=== PATIENT | female | born 1995 | race Caucasian/White ===

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

== ENCOUNTER 2019-03-06 19:23 | Outpatient (CLI) | payer MEDICAID ==
[~2019-03-06] VITALS: Ht 180.3 cm; Wt 88.8 kg
[~2019-03-06 19:23] MED LIST: IBUP-1773 PO; POLY17PO6 PO; PREN-142 PO
--- NOTE | 2019-03-06 19:29 | NUR ---
GARRY GALE presented to unit via ambulaotory from ED, accompanied by s/o , with c/o CONTRACTIONS. GARRY GALE weighed, gowned, voided, and to bed. EFHM and TOCO applied, VS taken. GARRY GALE oriented to bed controls, call light, TV, heat, and A/C controls. above tasks and further assessments completed per MERVAT العلي.
[2019-03-06 19:40] VITALS: BP 125/67
[2019-03-06 20:09] LABS: BILIRUBIN,URINE NEGATIVE (NEGATIVE); CLARITY,URINE CLEAR; COLOR,URINE YELLOW; GLUCOSE, URINE (UA) NEGATIVE (NEGATIVE); KETONES,URINE NEGATIVE (NEGATIVE); LEUKOCYTE ESTERASE ,URINE TRACE (NEGATIVE); NITRITE,URINE NEGATIVE (NEGATIVE); PROTEIN,URINE NEGATIVE (NEGATIVE)
[2019-03-06 20:22] LABS: BACTERIA,URINE MODERATE /HPF
[2019-03-06] MEDS ORDERED: CEPHALEXIN 250 MG (KEFLEX) CAP PO ONE ×2 (20:24→20:30)
[2019-03-06] MEDS ORDERED: CEPH-507 PO (20:27)
[2019-03-06 20:32] VITALS: BP 125/67
[2019-03-06 20:33] VITALS: BP 125/67
--- NOTE | 2019-03-06 20:42 | NUR ---
Discharge instructions read and reviewed with pt, verbalized understanding and ambulated off unit with friend.
--- NOTE | 2019-03-06 20:44 | NUR ---
Keflex 500mg bid x7 days called to [facility] in [place].
--- NOTE | 2019-03-07 07:58 | Physician Query-Final Dx ---
Clinic Account Progress/Dx Physician Query: Please give diagnosis (Ple) Please give # weeks gestation Date of Service Mar 06, 2019 at 19:23 BRITNEY MCCARTY Mar 07, 2019 07:58
== END 2019-03-06 20:40 | disposition home or self-care (01) ==
LOC: LDRP 19:23 → WSo 19:23
PROVIDERS: ATTEND Family Medicine
DX: O26.899 Other specified pregnancy related conditions, unspecified trimester (principal); Z3A.00 Weeks of gestation of pregnancy not specified
CPT/HCPCS: 81000; 87088; 99214

== ENCOUNTER 2019-05-12 20:45 | Inpatient (IN) | payer MEDICAID ==
[~2019-05-12] VITALS: Ht 180 cm; Wt 95.0 kg
[2019-05-12] VITALS (8 sets, daily range): BP systolic 125–167; BP diastolic 70–102
[~2019-05-12 20:45] MED LIST changes: +CEPH-507 PO
--- NOTE | 2019-05-12 20:45 | NUR ---
GARRY GALE presented to unit via W'C from ED, accompanied by S/O, with c/o WATER BROKE 39 04/26 gest . GARRY GALE weighed, gowned, voided, and to bed. EFHM and TOCO applied, VS taken. GARRY GALE oriented to bed controls, call light, TV, heat, and A/C controls.
--- NOTE | 2019-05-12 20:59 | NUR ---
notified of arrival and exam. Admission orders received.
[2019-05-12] MEDS ORDERED: D5 LR IV SOLUTION 1,000 ML IV ONE (21:00)
[2019-05-12] MEDS ORDERED: D5 LR IV SOLUTION 1,000 ML IV SCH (21:08)
[2019-05-12] MEDS ORDERED: MINERAL OIL CONCENTRATE 99.9% 15 ML UDC TOP PRN (21:15)
[2019-05-12] MEDS ORDERED: LACTATED RINGERS 1,000 ML IV ONE (21:29)
[2019-05-12 21:50] LABS: BASOPHILS % (AUTO) 0 % (0-10); EOSINOPHILS # (AUTO) 0.2 10^3/uL (0.0-0.3); EOSINOPHILS % (AUTO) 2 % (0-10); HEMATOCRIT 33 % (35-52); LYMPHOCYTES % (AUTO) 30 % (12-44); MEAN CORPUSCULAR HEMOGLOBIN 28 PG (25-34); MEAN CORPUSCULAR HGB CONC 33 G/DL (32-36); MEAN CORPUSCULAR VOLUME 85 FL (80-99); MONOCYTES # (AUTO) 1.1 X 10^3 (0.0-1.0); MONOCYTES % (AUTO) 12 % (0-12); NEUTROPHILS # (AUTO) 5.4 X 10^3 (1.8-7.8); NEUTROPHILS % (AUTO) 56 % (42-75); PLATELET COUNT 248 10^3/uL (130-400); RED CELL DISTRIBUTION WIDTH 14.2 % (10.0-14.5); WHITE BLOOD COUNT 9.7 10^3/uL (4.3-11.0)
[2019-05-12] MEDS ORDERED: LIDOCAINE/EPI 2% 1:200,00 (XYLOCAINE) 10 ML VIAL ONE (21:50)
[2019-05-12] MEDS ORDERED: fentaNYL 2 mcg/ml BUPIVA 0.125 0 ML ONE (21:51)
[2019-05-12] MEDS ORDERED: OXYTOCIN PRE-MIX DRIP 500 ML IV ONE ×2 (22:26→23:03)
[2019-05-12] MEDS: OXYTOCIN PRE-MIX DRIP 500 ML IV SCH ×2 (22:30→23:42)
--- NOTE | 2019-05-12 23:07 | History & Physical-OB ---
OB - Chief Complaint & HPI Date/Time Date of Admission: Date of Admission: May 12, 2019 at 21:06 Date seen by a Provider: May 12, 2019 Time Seen by a Provider: 22:28 Chief Complaint/History OB-Reason for Admission/Chief: Rupture of Membranes Hx : 2 Hx Para: 1 Expected Date of Delivery: May 16, 2019 Gestational Age in Weeks: 39 Gestational Age in Days: 3 Other reason for admission: SROM at home 2029 with onset of contractions. Green fluid. History of Labs O+, Ab neg, Rub Non Imm, HepB/RPR/HIV NR, GC/chyl neg Normal 1 hr GTT GBS neg Allergies and Home Medications Allergies Coded Allergies: No Known Drug Allergies (Unverified , 01/06/17) Home Medications Cephalexin 500 Mg Capsule, 500 MG PO BID Prescribed by: CAMILLE EDWARDS on 03/06/192026 Vit No.124/Iron/FA 1 Each Tablet, 1 EACH PO DAILY, (Reported) Patient Home Medication List Home Medication List Reviewed: Yes OB - History Hx of Present Care: Yes Ultrasounds: Normal mid trimester US Obstetrical Complications: None Medical Complications: None Information Induced Hypertension: No Maternal Gestational Diabetes: No Hemorrhage: No Obstetrical History Hx : 2 Hx Para: 1 Hx # Term Pregnancies: 1 Hx # Pregnancies: 0 Number of Living Children: 1 Hx Termination: No Hx Complication: No Hx Induced Hypertens: No Hx Maternal Gestational Diabet: No Hx Hemorrhage: No Delivery History Hx Dystocia: No Hx Forceps Assisted Delivery: No Hx Vacuum Extraction Assisted: No Hx Placenta Abnormality: No Hx Distress: No Hx Large For Gestational Age I: No Hx Small for Gestational Age I: No Hx Section: No Hx Vaginal Delivery Post C-Sec: No Hx Blood Disorders: No Adverse Rxn to Tranfusion: No Patient Past Medical History PMHx: Denies PSurgHx: Denies Social History/Family History HIV/AIDS: No Recent Infectious Disease Expo: No Sexually Transmitted Disease: No Alcohol Use: Denies Use Recreational Drug Use: No 2nd Hand Smoke Exposure: No Immunizations Hepatitis A: No Hepatitis B: No Tetanus Booster (TDap): Less than 5yrs (03/12/2019) Date of Influenza Vaccine: Jan 20, 2019 Rubella: not immune RPR/VDRL: Negative GBS Status: Negative HBsAG: Negative OB - Admission Exam Physical Exam Vitals: Vital Signs 05/12/19 21:12 Temp 36.5 Pulse 61 Resp 18 Pulse Ox 100 O2 Delivery Room Air HEENT: NCAT Lungs: Clear Abdomen: Gravid Cervical Dilatation: 10cm Effacement: 100% Station: +1 Membranes: Ruptured Amniotic Fluid: Thin Meconium Heart Rate: 130's Decelerations: Early Decelerations Contractions on Admission: < 5 Minutes Apart Intensity: Firm Labs Laboratory Tests Test 05/12/19 21:40 Range/Units White Blood Count 9.7 4.3-11.0 10^3/uL Red Blood Count 3.94 L 4.35-5.85 10^6/uL Hemoglobin 11.0 L 11.5-16.0 G/DL Hematocrit 33 L 35-52 % Mean Corpuscular Volume 85 80-99 FL Mean Corpuscular Hemoglobin 28 25-34 PG Mean Corpuscular Hemoglobin Concent 33 32-36 G/DL Red Cell Distribution Width 14.2 10.0-14.5 % Platelet Count 248 130-400 10^3/uL Mean Platelet Volume 12.0 H 7.4-10.4 FL Neutrophils (%) (Auto) 56 42-75 % Lymphocytes (%) (Auto) 30 12-44 % Monocytes (%) (Auto) 12 0-12 % Eosinophils (%) (Auto) 2 0-10 % Basophils (%) (Auto) 0 0-10 % Neutrophils # (Auto) 5.4 1.8-7.8 X 10^3 Lymphocytes # (Auto) 3.0 1.0-4.0 X 10^3 Monocytes # (Auto) 1.1 H 0.0-1.0 X 10^3 Eosinophils # (Auto) 0.2 0.0-0.3 10^3/uL Basophils # (Auto) 0.0 0.0-0.1 10^3/uL OB - Assessment/Plan/Diagnosis Assessment Assessment: active labor Admission Dx Term 39 week gestation Active Labor SROM Admission Status: Inpatient Order (span 2 midnights) Reason for Inpatient Admission: labor Plan Plan: Expectant Management Other Plan 23 yo @ 39.3 wga here after SROM at home with onset of labor Plan - Expectant Management - GBS Neg - Rub Non Imm Copy Copies To 1: JESSICA GLASS MD, HOLLY R MD May 12, 2019 23:06
[2019-05-12] MEDS ORDERED: WITCH HAZEL(TUCKS) 40 EA JAR TOP PRN (23:15)
[2019-05-12] MEDS ORDERED: BENZOCAINE/MENTHOL (DERMOPLAST) 60 ML CAN TP PRN (23:15)
[2019-05-12] MEDS ORDERED: MEASLES,MUMPS,RUBELLA 1 EA INJ SQ ONE (23:15)
--- NOTE | 2019-05-12 23:17 | OB Labor & Delivery Record ---
Vag Delivery Note Vag Delivery Note Date of Delivery: 05/12/19 Preoperative Diagnosis: Ariella Jacobsen is a (23 /Para 2 / 1, Gestational Age (wks)39.3with SROM at home Postoperative Diagnosis: Same Surgeon: JESSICA GLASS Posting Machine Operator: None Anesthesia: None Delivery Type: @ 2228 Findings: Viable female , apgars 8/9, weight 8#12, 3970 grams Lacerations: 2nd degree laceration Intact placenta with 3 vessel cord. No nuchal cord, body cord or shoulder dystocia Estimated Blood Loss: 125 ml Complications: None Condition: Stable Description of Procedure: The patient is a 23 year old female who presented with SROM at home. She was admitted and informed consent was obtained. Her labor course was remarkable for meconium. She progressed to complete dilatation and began to push. She was then set up for delivery. The infant's head was delivered atraumatically in the AROLDO position. The shoulders and remainder of the 's body were then delivered without difficulty. Upon delivery, the head was held below the level of the perineum and the mouth and nares were bulb suctioned. The cord was doubly clamped and cut by FOB and the infant was handed off to the pediatric staff. An intact placenta with 3-vessel cord delivered via Loy and there was found to be minimal bleeding.~ Vigorous fundal massage was performed and the fundus was found to be firm. IV oxytocin was given. Examination of the vagina and perineum revealed a 2nd degree laceration repaired in the usual fashion with 3-0 Reped suture. Following the repair, sponge, instrument and needle counts were correct. Mom and baby were both in stable condition in the labor suite. Vitals - Labs Vital Signs - I&O Vital Signs Date Time Temp Pulse Resp B/P (MAP) Pulse Ox O2 Delivery O2 Flow Rate FiO2 05/12/19 21:12 36.5 61 18 100 Room Air Labs Laboratory Tests 05/12/19 21:40: White Blood Count 9.7, Red Blood Count 3.94L, Hemoglobin 11.0L, Hematocrit 33L, Mean Corpuscular Volume 85, Mean Corpuscular Hemoglobin 28, Mean Corpuscular Hemoglobin Concent 33, Red Cell Distribution Width 14.2, Platelet Count 248, Mean Platelet Volume 12.0H, Neutrophils (%) (Auto) 56, Lymphocytes (%) (Auto) 30, Monocytes (%) (Auto) 12, Eosinophils (%) (Auto) 2, Basophils (%) (Auto) 0, Neutrophils # (Auto) 5.4, Lymphocytes # (Auto) 3.0, Monocytes # (Auto) 1.1H, Eosinophils # (Auto) 0.2, Basophils # (Auto) 0.0 JESSICA GLASS MD May 12, 2019 23:17
[2019-05-13] VITALS (8 sets, daily range): BP systolic 101–124; BP diastolic 58–73
[2019-05-13] MEDS: IBUPROFEN 600 MG (MOTRIN) TAB PO SCH ×5 (00:42→23:24)
[2019-05-13] MEDS: ACETAMINOPHEN 500 MG TAB (TYLENOL) PO SCH ×3 (00:42→18:53)
--- NOTE | 2019-05-13 00:48 | NUR ---
pt transfer via w'c to room 309. pt ambulated to bathroom. positive void. pericare completed. pt assisted to bed. orientated to room. info papers discussed. pt requesting sandwich tray. cold tray provided.
[2019-05-13] MEDS ORDERED: CATHETER FLUSH 10 ML SYR IV SCH (06:00)
[2019-05-13 06:42] LABS: BASOPHILS % (AUTO) 0 % (0-10); EOSINOPHILS # (AUTO) 0.1 10^3/uL (0.0-0.3); EOSINOPHILS % (AUTO) 1 % (0-10); HEMATOCRIT 30 % (35-52); HEMOGLOBIN 9.7 G/DL (11.5-16.0); LYMPHOCYTES # (AUTO) 3.4 X 10^3 (1.0-4.0); LYMPHOCYTES % (AUTO) 25 % (12-44); MEAN CORPUSCULAR HEMOGLOBIN 28 PG (25-34); MEAN CORPUSCULAR HGB CONC 33 G/DL (32-36); MEAN CORPUSCULAR VOLUME 85 FL (80-99); MEAN PLATELET VOLUME 12.2 FL (7.4-10.4); MONOCYTES # (AUTO) 1.4 X 10^3 (0.0-1.0); MONOCYTES % (AUTO) 10 % (0-12); NEUTROPHILS # (AUTO) 8.9 X 10^3 (1.8-7.8); NEUTROPHILS % (AUTO) 65 % (42-75); PLATELET COUNT 205 10^3/uL (130-400); RED CELL DISTRIBUTION WIDTH 14.1 % (10.0-14.5); WHITE BLOOD COUNT 13.7 10^3/uL (4.3-11.0)
[2019-05-13] MEDS: DOCUSATE SODIUM 100 MG (COLACE) CAP PO SCH ×2 (08:10→21:22)
--- NOTE | 2019-05-13 08:15 | NUR ---
PT IN BED, RESTING WITH S/O AT BEDSIDE. VS OBTAINED. MEDS GIVEN PO; SEE EMAR FOR FURTHER. INITIAL SHIFT ASSESSMENT COMPLETED; SEE INTERVENTION FOR FURTHER. SHOWER SET UP. PT DENIES ANY NEEDS OR QUESTIONS AT THIS TIME. PREPPING TO BREASTFEED INFANT. CALL LIGHT WITHIN REACH.
--- NOTE | 2019-05-13 11:04 | NUR ---
PT IN BED, S/O AT THE BEDSIDE. ROUTINE TYLENOL GIVEN PO; SEE EMAR FOR FURTHER. PT DENIES ANY NEEDS AT THIS TIME.
--- NOTE | 2019-05-13 13:00 | NUR ---
PT IN BED, S/O @ THE BEDSIDE. VS OBTAINED. NO NEEDS VOICED.
--- NOTE | 2019-05-13 17:14 | NUR ---
DR. HOPPER HERE TO SEE PT.
--- NOTE | 2019-05-13 17:27 | Progress Note ---
Subjective Subjective/Events-last exam Mother reports no complaints. She is doing very well. She reports there is no significant vaginal bleeding. She has no dizziness. She tolerated regular diet. There is no shortness of breath and no leg pain. Objective Exam Last Set of Vital Signs Vital Signs Date Time Temp Pulse Resp B/P (MAP) Pulse Ox O2 Delivery O2 Flow Rate FiO2 05/13/19 16:30 36.6 53 18 112/72 (85) 96 Room Air Capillary Refill : Less Than 3 Seconds I&O Intake and Output 05/13/19 00:00 Intake Total 1600 ml Balance 1600 ml Intake IV Total 1600 ml Daily Weight Change No General: Alert, No Acute Distress Neck: Supple Lungs: Clear to Auscultation Heart: Regular Rate Abdomen: Soft (With uterus firm) Results/Procedures Lab Laboratory Tests 05/12/19 21:40: White Blood Count 9.7, Red Blood Count 3.94L, Hemoglobin 11.0L, Hematocrit 33L, Mean Corpuscular Volume 85, Mean Corpuscular Hemoglobin 28, Mean Corpuscular Hemoglobin Concent 33, Red Cell Distribution Width 14.2, Platelet Count 248, Mean Platelet Volume 12.0H, Neutrophils (%) (Auto) 56, Lymphocytes (%) (Auto) 30, Monocytes (%) (Auto) 12, Eosinophils (%) (Auto) 2, Basophils (%) (Auto) 0, Neutrophils # (Auto) 5.4, Lymphocytes # (Auto) 3.0, Monocytes # (Auto) 1.1H, Eosinophils # (Auto) 0.2, Basophils # (Auto) 0.0 05/13/19 06:25: White Blood Count 13.7H, Red Blood Count 3.51L, Hemoglobin 9.7L, Hematocrit 30L, Mean Corpuscular Volume 85, Mean Corpuscular Hemoglobin 28, Mean Corpuscular Hemoglobin Concent 33, Red Cell Distribution Width 14.1, Platelet Count 205, Mean Platelet Volume 12.2H, Neutrophils (%) (Auto) 65, Lymphocytes (%) (Auto) 25, Monocytes (%) (Auto) 10, Eosinophils (%) (Auto) 1, Basophils (%) (Auto) 0, Neutrophils # (Auto) 8.9H, Lymphocytes # (Auto) 3.4, Monocytes # (Auto) 1.4H, Eosinophils # (Auto) 0.1, Basophils # (Auto) 0.0 Assessment/Plan Assessment/Plan Admission Dx 1. Intrauterine at term 2. Spontaneous vaginal delivery status post day number 1 Admission Status: Inpatient Order (span 2 midnights) Assessment & Plan 1. Intrauterine at term -Routine care orders -Suspect home in the morning of May 13 2. Spontaneous vaginal delivery status post day number 1 -Her hemoglobin is stable this morning at 9.7 Clinical Quality Measures DVT/VTE Risk/Contraindication: Risk Factor Score Per Nursin RFS Level Per Nursing on Admit: 1=Low/No VTE PPX DAMASO HOPPER MD May 13, 2019 17:27
[2019-05-14 02:24] VITALS: BP 111/72
[2019-05-14] MEDS: ACETAMINOPHEN 500 MG TAB (TYLENOL) PO SCH ×3 (02:24→09:24)
[2019-05-14] MEDS: IBUPROFEN 600 MG (MOTRIN) TAB PO SCH ×2 (06:09→12:33)
--- NOTE | 2019-05-14 07:48 | Discharge Summary ---
Diagnosis/Chief Complaint Date of Admission May 12, 2019 at 21:06 Date of Discharge May 14, 2019 Admission Diagnosis Admission Diagnosis 1. Intrauterine at 39 weeks gestation Discharge Diagnosis 1. Anterior at 39 weeks gestation Chief Complaint/HPI Chief Complaint/HPI 23-year-old 2 now term 2 who presented to labor and delivery with active labor during the evening of May 12, 2019. Her care was obtained through Dr. Agustin at [facility] and essentially unremarkable. She was noted to be at 39 weeks 3 days gestation upon presentation. Her GBS status negative. Discharge Summary-OBS Procedures 1. Spontaneous vaginal delivery Dr. Agustin Discharge Physical Examination Allergies: Coded Allergies: No Known Drug Allergies (Unverified , 01/06/17) Vitals & I&Os Vital Sign - Last 12Hours Date Time Temp Pulse Resp B/P (MAP) Pulse Ox O2 Delivery O2 Flow Rate FiO2 05/14/19 02:24 36.4 52 18 111/72 (85) 96 Room Air General Appearance: No Acute Distress Respiratory: Clear to Auscultation Cardiovascular: Regular Rate Abdominal: Soft (With uterus firm) Hospital Course Was the Problem List Reviewed?: Yes Patient presented to women's services during the evening of May 12, 2019 in full active labor. She delivered shortly after presentation a term viable female. She did not receive any IV pain medications or epidural due to the quickness of her labor. She had a first-degree perineal laceration that was repaired by Dr. Agustin. Following delivery patient underwent routine care orders. She had no complications during the remainder of her hospital stay. She remained afebrile. She tolerated regular diet. There was no shortness of breath or leg pain. Her hemoglobin on day after delivery 9.7 compared to 11.0 on admission. She was felt ready for dismissal during the morning of May 14, 2019. She will follow- up with Dr. Agustin in 6 weeks. Discharge Instructions to patient/family Please see electronic discharge instructions given to patient. Discharge Medications Reviewed and agree with Discharge Medication list on patient's Discharge Instruction sheet Clinical Quality Measures DVT/VTE Risk/Contraindication: Risk Factor Score Per Nursin RFS Level Per Nursing on Admit: 1=Low/No VTE PPX DAMASO HOPPER MD May 14, 2019 07:47
--- NOTE | 2019-05-14 07:51 | Discharge Inst-Women's Service ---
Discharge Inst-Women's Serv Depart Medication/Instructions New, Converted or Re-Newed RX: Other Instructions Ibuprofen 200 mg tablets [id number] you may take 2 or 3 every 6 hours as needed for cramping or pain to the perineum. Problems Reviewed?: Yes Consults/Follow Up Additional Follow Up: Yes (With Dr. Agustin in 6 weeks) Activity Activity: Activity as Tolerated Driving Instructions: No Driving for 1 Week Nothing Inside Vagina: No [place] (For 6 weeks) Diet Discharge Diet: Regular Diet Return to The Hospital For: As below Symptoms to Report to : Bleeding Excessive, Fever Over 101 Degrees F, Vagina l Discharge Foul For Any Problems or Questions: Contact Your Physician DAMASO HOPPER MD May 14, 2019 07:51
--- NOTE | 2019-05-14 08:30 | NUR ---
A.M. ASSESSMENT COMPLETED. VSS.
[2019-05-14 09:00] VITALS: BP 113/78
[2019-05-14] MEDS: DOCUSATE SODIUM 100 MG (COLACE) CAP PO SCH (09:24)
--- NOTE | 2019-05-14 10:00 | NUR ---
CARING FOR INFANT IN ROOM. GOOD INTERACTION NOTED.
--- NOTE | 2019-05-14 12:00 | NUR ---
HAS BEEN IN OFF AND ON NEEDED TODAY.
[2019-05-14 12:30] VITALS: BP 110/77
--- NOTE | 2019-05-14 13:00 | NUR ---
EATING STORK MEAL.
--- NOTE | 2019-05-14 13:24 | NUR ---
MMR GIVEN SUBQ IN LEFT UPPER ARM. SITE CLEAR.
[2019-05-14 13:30] VITALS: BP 110/77
--- NOTE | 2019-05-14 14:00 | NUR ---
DISCHARGE INSTRUCTIONS REVIEWED WITH COPY TO PT. STATES UNDERSTANDING OF ALL INSTRUCTIONS AND NEED TO F/U SCHEDULED AND NEEDED.
[2019-05-14 14:35] VITALS: BP 110/77
--- NOTE | 2019-05-14 14:35 | NUR ---
DISMISSED AMB FROM [facility] WITH IN STABLE CONDITION TO FAMILY CAR [facility] BY CLARITA العلي.
== END 2019-05-14 14:35 | disposition home or self-care (01) | DRG 807 ==
LOC: WSo 20:45 → LDRP 20:47 → WSo 21:06 → LDRP 05-13 02:21
PROVIDERS: ADMIT Family Medicine; ATTEND Family Medicine
PROC: 10E0XZZ Delivery of Products of Conception, External Approach (ICD-10-PCS; principal; 2019-05-12)
PROC: 0KQM0ZZ Repair Perineum Muscle, Open Approach (ICD-10-PCS; 2019-05-12)
DX: O77.0 Labor and delivery complicated by meconium in amniotic fluid (principal); Z37.0 Single live birth; O70.1 Second degree perineal laceration during delivery; Z3A.39 39 weeks gestation of pregnancy; Z23 Encounter for immunization
CPT/HCPCS: 36415; 85025; 86850; 86900; 86901; 90707; 99212

== ENCOUNTER 2020-08-13 23:41 | Inpatient (IN) | payer MEDICAID ==
[2020-08-13 23:41] VITALS: BP 147/89
[2020-08-13] MEDS ORDERED: D5 LR IV SOLUTION 1,000 ML IV ONE (23:48)
[2020-08-13] MEDS ORDERED: OXYTOCIN PRE-MIX DRIP 500 ML IV ONE (23:59)
[2020-08-14] VITALS (13 sets, daily range): BP systolic 106–129; BP diastolic 53–78
[2020-08-14] MEDS: OXYTOCIN PRE-MIX DRIP 500 ML IV SCH ×2 (00:01→00:31)
[2020-08-14] MEDS ORDERED: LIDOCAINE/EPI 2% 1:200,00 (XYLOCAINE) 20 ML VIAL ONE (00:04)
[2020-08-14] MEDS ORDERED: D5 LR IV SOLUTION 1,000 ML IV SCH (00:30)
[2020-08-14] MEDS ORDERED: OXYTOCIN PRE-MIX DRIP 500 ML IV ONE (00:31)
[2020-08-14 00:34] LABS: BASOPHILS # (AUTO) 0.1 10^3/uL (0.0-0.1); BASOPHILS % (AUTO) 1 % (0-10); EOSINOPHILS # (AUTO) 0.2 10^3/uL (0.0-0.3); EOSINOPHILS % (AUTO) 2 % (0-10); HEMATOCRIT 37 % (35-52); LYMPHOCYTES # (AUTO) 3.7 10^3/uL (1.0-4.0); LYMPHOCYTES % (AUTO) 28 % (12-44); MEAN CORPUSCULAR HEMOGLOBIN 26 pg (25-34); MEAN CORPUSCULAR HGB CONC 32 g/dL (32-36); MEAN CORPUSCULAR VOLUME 82 fL (80-99); MEAN PLATELET VOLUME 11.2 fL (9.0-12.2); MONOCYTES # (AUTO) 1.4 10^3/uL (0.0-1.0); MONOCYTES % (AUTO) 10 % (0-12); NEUTROPHILS # (AUTO) 7.8 10^3/uL (1.8-7.8); NEUTROPHILS % (AUTO) 59 % (42-75); PLATELET COUNT 309 10^3/uL (130-400); WHITE BLOOD COUNT 13.3 10^3/uL (4.3-11.0)
--- NOTE | 2020-08-14 00:36 | History & Physical-OB/GYN ---
JOYCELYN HARRY MED STUDENT 08/14/20 0036: OB - Chief Complaint & HPI Date/Time Date of Admission: Date of Admission: Aug 13, 2020 at 23:42 Time Seen by a Provider: 23:54 Chief Complaint/History OB-Reason for Admission/Chief: Onset of Labor Hx : 3 Hx Para: 2 Hx Last Menstrual Period: 11/14/2019 Estimated Date of Conception: 08/20/2020 Gestational Age in Weeks: 39 Gestational Age in Days: 1 History of Labs GBS neg GC neg Allergies and Home Medications Allergies Coded Allergies: No Known Drug Allergies (Unverified , 01/06/17) Home Medications Vit No.124/Iron/FA 1 Each Tablet, 1 EACH PO DAILY, (Reported) Patient Home Medication List Home Medication List Reviewed: Yes OB - History Hx of Present Care: No Ultrasounds: No ultrasounds Obstetrical Complications: None Medical Complications: None Obstetrical History Hx : 3 Hx Para: 2 Hx # Term Pregnancies: 2 Hx # Pregnancies: 0 Number of Living Children: 2 Hx Termination: No Hx Complication: No Hx Induced Hypertens: No Hx Maternal Gestational Diabet: No Delivery History Hx Dystocia: No Hx Large For Gestational Age I: No Hx Small for Gestational Age I: No Hx Section: No Hx Vaginal Delivery Post C-Sec: No Hx Blood Disorders: No Adverse Rxn to Tranfusion: No Patient Past Medical History PMHx: Denies PSurgHx: Denies Social History/Family History 2nd Hand Smoke Exposure: No Immunizations Hepatitis A: No Hepatitis B: No Tetanus Booster (TDap): Less than 5yrs Date of Influenza Vaccine: Jan 20, 2019 OB - Admission Exam Physical Exam HEENT: NCAT Abdomen: Gravid Extremities: Normal Cervical Dilatation: 10cm Effacement: 100% Station: +1 Membranes: Ruptured Amniotic Fluid: Clear Labs Laboratory Tests Test 08/13/20 23:49 Range/Units OB - Assessment/Plan/Diagnosis Assessment Assessment: active labor Admission Dx 25 yo @ 39/0 Active labor SROM GBS neg Inadequate care Admission Status: Inpatient Order (span 2 midnights) Reason for Inpatient Admission: Active labor Plan Plan: Expectant Management Supervisory-Addendum Brief Verification & Attestation Participated in pt care: history, physical Personally performed: history Care discussed with: Medical Student Procedures: n/a ALLEGRA,ALVAREZ N MD 08/14/20 0110: Allergies and Home Medications Allergies Coded Allergies: No Known Drug Allergies (Unverified , 01/06/17) Home Medications Vit No.124/Iron/FA 1 Each Tablet, 1 EACH PO DAILY, (Reported) Supervisory-Addendum Brief Verification & Attestation Participated in pt care: history, physical Personally performed: exam, history Care discussed with: Medical Student Procedures: n/a I personally saw and examined this patient and my findings match those documented by the medical student. JOYCELYN HARRY MED STUDENT Aug 14, 2020 00:36 ALVAREZ DINH MD Aug 14, 2020 01:10
--- NOTE | 2020-08-14 00:53 | OB Labor & Delivery Record ---
Vag Delivery Note Vag Delivery Note Date of Delivery: 08/14/20 Preoperative Diagnosis: Ariella Jacobsen is a 25 /Para 3/3 ,Gestational Age (wks)with 39w0d Postoperative Diagnosis: Same Surgeon: ALVAREZ DINH Manager Risk Management: Amairani Mayorga MS3 Anesthesia: None Delivery Type: Findings: Viable female infant, apgars 9/9, weight 7#15 Lacerations: second degree perineal laceration Intact placenta with 3 vessel cord. No nuchal cord, body cord or shoulder dystocia Estimated Blood Loss: 350 ml Complications: None Condition: Stable Description of Procedure: The patient is a 25 year old female who presented in active labor with complete cervical dilation on arrival. She was admitted and informed consent was obtained. Her labor course was remarkable for precipitous delivery. She progressed to complete dilatation and began to push. She was then set up for delivery. The 's head was delivered atraumatically in the OA position. The shoulders and remainder of the 's body were then delivered without difficulty. Upon delivery, the infant was vigorous and placed on maternal abdomen. The cord was doubly clamped and cut and the was handed off to the pediatric staff. An intact placenta with 3-vessel cord delivered via Loy and there was found to be minimal bleeding.~ Vigorous fundal massage was performed and the fundus was found to be firm. IV oxytocin was given. Examination of the vagina and perineum revealed a perineal laceration repaired in the usual fashion with 3-0 vicryl suture. Following the repair, sponge, instrument and needle counts were correct. Mom and baby were both in stable condition in the labor suite. Vitals - Labs Labs Laboratory Tests 08/13/20 23:49: ALVAREZ DINH MD Aug 14, 2020 00:53
[2020-08-14] MEDS ORDERED: WITCH HAZEL(TUCKS) 40 EA JAR TOP PRN (04:00)
[2020-08-14] MEDS ORDERED: MEASLES,MUMPS,RUBELLA 1 EA INJ SQ ONE (04:00)
[2020-08-14] MEDS ORDERED: BENZOCAINE/MENTHOL (DERMOPLAST) 56 ML CAN TP PRN (04:00)
[2020-08-14] MEDS ORDERED: TETANUS,DIPTH,PERTUSS P/F (BOOSTRIX) 0.5 ML VIAL IM ONE (04:00)
[2020-08-14] MEDS: IBUPROFEN 600 MG (MOTRIN) TAB PO SCH ×4 (04:14→22:27)
[2020-08-14] MEDS: DOCUSATE SODIUM 100 MG (COLACE) CAP PO SCH ×2 (10:11→22:27)
[2020-08-14] MEDS: CATHETER FLUSH 10 ML SYR IV SCH (23:57)
[2020-08-15 00:54] VITALS: BP 117/73
[2020-08-15] MEDS: IBUPROFEN 600 MG (MOTRIN) TAB PO SCH ×2 (04:27→09:38)
[2020-08-15 05:32] LABS: BASOPHILS # (AUTO) 0.1 10^3/uL (0.0-0.1); BASOPHILS % (AUTO) 1 % (0-10); EOSINOPHILS # (AUTO) 0.4 10^3/uL (0.0-0.3); EOSINOPHILS % (AUTO) 3 % (0-10); HEMATOCRIT 31 % (35-52); HEMOGLOBIN 10.1 g/dL (11.5-16.0); LYMPHOCYTES # (AUTO) 3.1 10^3/uL (1.0-4.0); LYMPHOCYTES % (AUTO) 30 % (12-44); MEAN CORPUSCULAR HEMOGLOBIN 27 pg (25-34); MEAN CORPUSCULAR HGB CONC 33 g/dL (32-36); MEAN CORPUSCULAR VOLUME 83 fL (80-99); MEAN PLATELET VOLUME 11.3 fL (9.0-12.2); MONOCYTES # (AUTO) 0.8 10^3/uL (0.0-1.0); MONOCYTES % (AUTO) 7 % (0-12); NEUTROPHILS # (AUTO) 5.9 10^3/uL (1.8-7.8); NEUTROPHILS % (AUTO) 57 % (42-75); PLATELET COUNT 227 10^3/uL (130-400); WHITE BLOOD COUNT 10.4 10^3/uL (4.3-11.0)
[2020-08-15] MEDS: CATHETER FLUSH 10 ML SYR IV SCH (06:42)
[2020-08-15 09:35] VITALS: BP 115/62
[2020-08-15] MEDS ORDERED: IBUPROFEN 600 MG (MOTRIN) TAB PO ONE (09:36)
[2020-08-15] MEDS: DOCUSATE SODIUM 100 MG (COLACE) CAP PO SCH (09:38)
--- NOTE | 2020-08-15 10:02 | Discharge Summary ---
Diagnosis/Chief Complaint Date of Admission Aug 13, 2020 at 23:42 Date of Discharge 08/15/20 Admission Diagnosis Admission Diagnosis Third Trimester 39 week gestation Discharge Diagnosis Precipitous delivery @ 39 week gestation Discharge Summary-Simple/Stand Procedures Precipitous Discharge Physical Examination Allergies: Coded Allergies: No Known Drug Allergies (Unverified , 01/06/17) Vitals & I&Os Vital Sign - Last 12Hours Date Time Temp Pulse Resp B/P (MAP) Pulse Ox O2 Delivery O2 Flow Rate FiO2 08/15/20 09:35 36.5 77 16 115/62 (79) 98 Room Air General Appearance: Alert, Oriented X3, Cooperative, No Acute Distress HEENT: Mucous Memb Moist/[place] Respiratory: Clear to Auscultation Cardiovascular: Regular Rate, No Murmurs Abdominal: Normal Bowel Sounds, Soft, No Tenderness, No Masses, Other (Fundus firm and below umbilicus) Extremities: No Tenderness/Swelling, Other (trace swelling present bilaterally) Skin: No Rashes, No Breakdown Neuro: Normal Speech, Strength at 5/5 X4 Ext, Sensation Intact, Cranial Nerves 3-12 NL Psych/Mental Status: Mental Status NL, Mood NL Hospital Course Was the Problem List Reviewed?: Yes See final discharge diagnosis. Discussion & Recommendations 25 yo G3 now P3 delivery term male infant via precipitous @ 39.0. Uncomplicated Discharge Condition at discharge stable Instructions to patient/family Please see electronic discharge instructions given to patient. Discharge Medications Reviewed and agree with Discharge Medication list on patient's Discharge Instruction sheet Copy Copies To 1: JESSICA GLASS MD, HOLLY R MD Aug 15, 2020 10:02
[2020-08-15] MEDS ORDERED: IBUP-844 PO (10:03)
--- NOTE | 2020-08-15 10:04 | Discharge Summary ---
Discharge Inst-Women's Serv Reconcile Patient Problems Problems Reviewed?: Yes Depart Medications New, Converted or Re-Newed RX: Transmitted to Pharmacy New Medications: Ibuprofen (Ibu) 600 Mg Tablet 600 MG PO Q6HR, #90 TAB Continued Medications: Vit No.124/Iron/FA ( Vitamin Tablet) 1 Each Tablet 1 EACH PO DAILY, TAB Follow Up/Instructions Goal/Follow Up: [address] Agustin for Post visit Activity Activity: Activity as Tolerated Driving Instructions: You May Drive NO SMOKING: NO SMOKING Nothing Inside Vagina: No Douching, No [place], No Tampons Diet Discharge Diet: No Restrictions Symptoms to Report to : Bleeding Excessive, Pain Increased, Fever Over 101 Degrees F For Any Problems or Questions: Contact Your Physician Copies To 1: JESSICA AGUSTIN MD, HOLLY R MD Aug 15, 2020 10:04
== END 2020-08-15 11:29 | disposition home or self-care (01) | DRG 807 ==
LOC: WSo 23:41 → LDRP 23:42 → WS 08-14 02:25
PROVIDERS: ADMIT Family Medicine; ATTEND Family Medicine
PROC: 10E0XZZ Delivery of Products of Conception, External Approach (ICD-10-PCS; principal; 2020-08-14)
PROC: 0KQM0ZZ Repair Perineum Muscle, Open Approach (ICD-10-PCS; 2020-08-14)
DX: O62.3 Precipitate labor (principal); Z37.0 Single live birth; O70.1 Second degree perineal laceration during delivery; Z3A.39 39 weeks gestation of pregnancy
CPT/HCPCS: 36415; 85025; 86703; 86780; 86850; 86900; 86901; 87340; 99212

== ENCOUNTER 2021-12-22 19:58 | Outpatient (CLI) | payer MEDICAID ==
[~2021-12-22] VITALS: Ht 175.3 cm; Wt 92.4 kg
[~2021-12-22 19:58] MED LIST changes: +IBUP-844 PO
[2021-12-22 20:10] VITALS: BP 106/57
[2021-12-22 20:57] LABS: BILIRUBIN,URINE NEGATIVE (NEGATIVE); CLARITY,URINE CLOUDY; COLOR,URINE YELLOW; GLUCOSE, URINE (UA) NEGATIVE (NEGATIVE); KETONES,URINE NEGATIVE (NEGATIVE); LEUKOCYTE ESTERASE ,URINE 3+ (NEGATIVE); NITRITE,URINE NEGATIVE (NEGATIVE); PH,URINE 6.5 (5-9); PROTEIN,URINE 2+ (NEGATIVE)
[2021-12-22 21:05] LABS: BACTERIA,URINE FEW /HPF; RBC,URINE 25-50 /HPF; SQUAMOUS EPITHELIAL CELL,UR 0-2 /HPF; WBC,URINE TNTC /HPF
--- NOTE | 2021-12-23 09:03 | Physician Query-Final Dx ---
Clinic Account Progress/Dx Physician Query: Please give diagnosis Please include # weeks gestation Date of Service Dec 22, 2021 at 19:58 [place],FebDec 23, 2021 09:03
== END 2021-12-22 21:28 ==
LOC: LDRP 19:58 → WSo 19:58
PROVIDERS: ATTEND Family Medicine
DX: O62.9 Abnormality of forces of labor, unspecified (principal); Z3A.00 Weeks of gestation of pregnancy not specified
CPT/HCPCS: 81000; 87088; 99212

== ENCOUNTER 2022-03-30 06:00 | Inpatient (IN) | payer MEDICAID ==
[~2022-03-30] VITALS: Ht 172.7 cm; Wt 87.3 kg
[2022-03-30] VITALS (27 sets, daily range): BP systolic 97–143; BP diastolic 48–84
[2022-03-30] MEDS ORDERED: MINERAL OIL 30 ML UDC TOP PRN (06:15)
[2022-03-30] MEDS ORDERED: D5 LR IV SOLUTION 1,000 ML IV SCH (06:15)
[2022-03-30 06:36] LABS: BASOPHILS # (AUTO) 0.1 10^3/uL (0.0-0.1); BASOPHILS % (AUTO) 1 % (0-10); EOSINOPHILS # (AUTO) 0.3 10^3/uL (0.0-0.3); EOSINOPHILS % (AUTO) 3 % (0-10); HEMATOCRIT 34 % (35-52); HEMOGLOBIN 10.9 g/dL (11.5-16.0); LYMPHOCYTES # (AUTO) 2.7 10^3/uL (1.0-4.0); LYMPHOCYTES % (AUTO) 26 % (12-44); MEAN CORPUSCULAR HEMOGLOBIN 25 pg (25-34); MEAN CORPUSCULAR HGB CONC 32 g/dL (32-36); MEAN CORPUSCULAR VOLUME 80 fL (80-99); MEAN PLATELET VOLUME 11.4 fL (9.0-12.2); MONOCYTES # (AUTO) 0.8 10^3/uL (0.0-1.0); MONOCYTES % (AUTO) 7 % (0-12); NEUTROPHILS # (AUTO) 6.5 10^3/uL (1.8-7.8); NEUTROPHILS % (AUTO) 63 % (42-75); PLATELET COUNT 356 10^3/uL (130-400); WHITE BLOOD COUNT 10.3 10^3/uL (4.3-11.0)
[2022-03-30 06:37] LABS: BILIRUBIN,URINE NEGATIVE (NEGATIVE); CLARITY,URINE SL CLOUDY; COLOR,URINE YELLOW; GLUCOSE, URINE (UA) NEGATIVE (NEGATIVE); KETONES,URINE NEGATIVE (NEGATIVE); LEUKOCYTE ESTERASE ,URINE 3+ (NEGATIVE); NITRITE,URINE NEGATIVE (NEGATIVE); PH,URINE 6.5 (5-9); PROTEIN,URINE NEGATIVE (NEGATIVE)
[2022-03-30 07:03] LABS: RBC,URINE RARE /HPF
[2022-03-30 07:04] LABS: BACTERIA,URINE MODERATE /HPF; WBC,URINE >100 /HPF
[2022-03-30] MEDS ORDERED: OXYTOCIN PRE-MIX DRIP 500 ML IV SCH ×2 (07:15→11:00)
--- NOTE | 2022-03-30 07:18 | History & Physical-OB ---
OB - Chief Complaint & HPI Date/Time Date of Admission: Date of Admission: Mar 30, 2022 at 06:05 Date seen by a Provider: Mar 30, 2022 Time Seen by a Provider: 06:30 Chief Complaint/History OB-Reason for Admission/Chief: Induction of Labor Hx : 4 Hx Para: 3 Expected Date of Delivery: Apr 06, 2022 Gestational Age in Weeks: 39 Gestational Age in Days: 0 Admission Nurse Assessment Rev: Yes Allergies and Home Medications Allergies Coded Allergies: aspirin (Verified Allergy, Unknown, 03/30/22) Patient Home Medication List Home Medication List Reviewed: Yes Vit No.124/Iron/FA ( Vitamin Tablet) 1 Each Tablet, 1 EACH PO DAILY, (Reported) Entered as Reported by: CAMILLE EDWARDS on 01/06/17213 OB - History Hx of Present Care: Yes Ultrasounds: Normal mid trimester US Obstetrical Complications: None Medical Complications: None Obstetrical History Hx Termination: No Hx Complication: No Hx Induced Hypertens: No Hx Maternal Gestational Diabet: No Delivery History Hx Dystocia: No Hx Large For Gestational Age I: No Hx Small for Gestational Age I: No Hx Section: No Hx Vaginal Delivery Post C-Sec: No Hx Blood Disorders: No Adverse Rxn to Tranfusion: No Patient Past Medical History PMHx: Denies PSurgHx: Denies Social History/Family History 2nd Hand Smoke Exposure: No Immunizations Hepatitis A: No Hepatitis B: No Tetanus Booster (TDap): Less than 5yrs OB - Admission Exam Physical Exam HEENT: Moist Membranes Lungs: Clear Abdomen: Gravid Cervical Dilatation: 2cm Effacement: 50% Membranes: Intact Heart Rate: 140's Accelerations: Accelerations Present Mcfp Variability: Average (6-25) Contractions on Admission: >10 Minutes Apart Intensity: Mild Mcwilliams Scoring Tool (Modified) Dilation (cm): 1-2cm (1) Effacement (%): 31-51% (1) Descent/Station: -3 (0) Cervix Consistency: Medium(1) Cervix Position: Middle/Mid-Position (1) Add 1 point for: Each previous vaginal delivery (1) Mcwilliams Score: 7 Labs Laboratory Tests Test 03/30/22 06:15 03/30/22 06:20 Range/Units Urine Color YELLOW Urine Clarity SL CLOUDY Urine pH 6.5 5-9 Urine Specific [place] 1.010 L 1.016-1.022 Urine Protein NEGATIVE NEGATIVE Urine Glucose (UA) NEGATIVE NEGATIVE Urine Ketones NEGATIVE NEGATIVE Urine Nitrite NEGATIVE NEGATIVE Urine Bilirubin NEGATIVE NEGATIVE Urine Urobilinogen 0.2 < = 1.0 MG/DL Urine Leukocyte Esterase 3+ H NEGATIVE Urine RBC (Auto) TRACE-I H NEGATIVE Urine RBC RARE /HPF Urine WBC >100 H /HPF Urine Squamous Epithelial Cells 10-25 H /HPF Urine Crystals NONE /LPF Urine Bacteria MODERATE H /HPF Urine Casts NONE /LPF Urine Mucus NEGATIVE /LPF Urine Culture Indicated YES White Blood Count 10.3 4.3-11.0 10^3/uL Red Blood Count 4.30 3.80-5.11 10^6/uL Hemoglobin 10.9 L 11.5-16.0 g/dL Hematocrit 34 L 35-52 % Mean Corpuscular Volume 80 80-99 fL Mean Corpuscular Hemoglobin 25 25-34 pg Mean Corpuscular Hemoglobin Concent 32 32-36 g/dL Red Cell Distribution Width 15.7 H 10.0-14.5 % Platelet Count 356 130-400 10^3/uL Mean Platelet Volume 11.4 9.0-12.2 fL Immature Granulocyte % (Auto) 1 % Neutrophils (%) (Auto) 63 42-75 % Lymphocytes (%) (Auto) 26 12-44 % Monocytes (%) (Auto) 7 0-12 % Eosinophils (%) (Auto) 3 0-10 % Basophils (%) (Auto) 1 0-10 % Neutrophils # (Auto) 6.5 1.8-7.8 10^3/uL Lymphocytes # (Auto) 2.7 1.0-4.0 10^3/uL Monocytes # (Auto) 0.8 0.0-1.0 10^3/uL Eosinophils # (Auto) 0.3 0.0-0.3 10^3/uL Basophils # (Auto) 0.1 0.0-0.1 10^3/uL Immature Granulocyte # (Auto) 0.1 0.0-0.1 10^3/uL OB - Assessment/Plan/Diagnosis Assessment Assessment: induction of labor Admission Dx 1. IUP at term 39 weeks Admission Status: Inpatient Order (span 2 midnights) Reason for Inpatient Admission: L&D Plan Plan: Induction Induction Method: AROM Other Plan -would like epidural -pitocin if necessary DAMASO HOPPER MD Mar 30, 2022 07:18
[2022-03-30] MEDS ORDERED: fentaNYL 2 mcg/ml BUPIVA 0.125 100 ML ONE (08:20)
[2022-03-30] MEDS ORDERED: BUPIVACAINE 0.25% 10 ML (SENSORCAINE) VIAL ONE (08:23)
[2022-03-30] MEDS ORDERED: fentaNYL INJ 100 MCG/2 ML AMP ONE (08:23)
[2022-03-30] MEDS ORDERED: LACTATED RINGERS 1,000 ML IV ONE ×2 (09:00)
[2022-03-30] MEDS ORDERED: NALOXONE 0.4 MG/ML 1 ML (NARCAN) VIAL IV PRN ×2 (09:00→11:00)
[2022-03-30] MEDS ORDERED: fentaNYL 2 mcg/ml BUPIVA 0.125 100 ML EPI SCH (09:00)
[2022-03-30] MEDS ORDERED: ONDANSETRON 4 MG/2 ML (SDV) Z0FRAN IV PRN (09:00)
[2022-03-30] MEDS ORDERED: fentaNYL INJ 100 MCG/2 ML AMP INJ ONE (09:00)
--- NOTE | 2022-03-30 10:54 | OB Labor & Delivery Record ---
L&D History Date of Service Date of Service: Mar 30, 2022 History Expected Date of Delivery: Apr 06, 2022 Gestational Age in Weeks: 39 Hx : 4 Hx Para: 4 Complications Events: Routine care Operative Indications (Cesarea: N/A-Vaginal Delivery Intrapartal Events: None L&D Stage1 Stage One Onset of Labor - Date: Mar 30, 2022 Onset of Labor - Time: 06:31 Monitors and Tracing Monitor Mode: Internal Heart Rate: 130 Monitor Accelerations: Uniform Station: -3 Medical Records Assistant Variability: Average (6-10) Short Term Variability: Present Presentation: Vertex Vital Signs VS - Last 72 Hours, by Label 03/30/22 03/30/22 03/30/22 03/30/22 06:34 07:45 08:15 08:30 Temp 36.6 36.5 Pulse 83 82 78 74 Resp 18 18 18 18 B/P (MAP) 117/78 (91) 128/84 (99) 126/60 (82) Pulse Ox 100 99 O2 Delivery Room Air Room Air Room Air Room Air 03/30/22 03/30/22 03/30/22 03/30/22 08:35 08:40 08:45 08:50 Pulse 70 69 78 64 Resp 18 18 18 18 B/P (MAP) 112/64 (80) 119/61 (80) 128/74 (92) 111/63 (79) Pulse Ox 100 100 92 100 O2 Delivery Room Air Room Air Room Air Room Air 03/30/22 08:55 Pulse 85 Resp 18 B/P (MAP) 114/69 (84) Pulse Ox 100 O2 Delivery Room Air Signs of Distress by FHT Signs of Distress no Rupture of Membranes Spontaneous Ruture of Membrane: No Amniotic Membrane Rupture Time: 0631 Amniotic Membrane Fluid Desc.: Clear Vaginal Bleeding Description: None L&D Stage2 Stage Two Stage II Date: Mar 30, 2022 Stage II Time: 09:58 Monitors and Tracing Monitor Mode: Internal Heart Rate: 130 Monitor Accelerations: Uniform Monitor Decelerations: None Skilled Nursing Variability: Average (6-10) Short Term Variability: Present Position: Left Occiput Anterior Presentation: Vertex Signs of Distress by FHT Signs of Distress no Cord Descript/Complications Cord Vessel Description: 3 Vessels Delivery Type Infant Delivery Method: Spontaneous Vaginal Anterior Shoulder: Left Episiotomy/Perineal Laceration Laceraction(s)/Extensions: No Condition of Infant Delivery 1 minute Comment: 8 5 minute Comment: 9 Condition of Infant Condition of : Living Exam: No Observed Abnormalities Resuscitation Resuscitation: N/A - Spontaneous Resp L&D Stage3 Stage Three Stage III Date: Mar 30, 2022 Stage III Time: 10:03 Pictocin Pitocin Administration mu/min: 2 Pitocin ml/hr: 2 Pitocin Administration Comment: pitocin gtt infusion started per Dr's orders. Placenta Delivery Placenta Delivery: Spontaneous Delivery Summary Summary Estimated blood loss (mL): 100 Condition of Delivery Examined: Cervix Examined Post Hemorrhage: No Intervention Required none DAMASO HOPPER MD Mar 30, 2022 10:54
[2022-03-30] MEDS ORDERED: MEASLES,MUMPS,RUBELLA 1 EA INJ SQ ONE (11:00)
[2022-03-30] MEDS ORDERED: BENZOCAINE/MENTHOL (DERMOPLAST) 56 ML CAN TP PRN (11:00)
[2022-03-30] MEDS ORDERED: TETANUS,DIPTH,PERTUSS P/F (BOOSTRIX) 0.5 ML VIAL IM ONE (11:00)
[2022-03-30] MEDS ORDERED: WITCH HAZEL(TUCKS) 40 EA JAR TOP PRN (11:00)
[2022-03-30] MEDS ORDERED: CATHETER FLUSH 10 ML SYR IV SCH ×2 (14:00)
[2022-03-30] MEDS: IBUPROFEN 600 MG (MOTRIN) TAB PO SCH ×3 (14:30→21:27)
[2022-03-30] MEDS: ACETAMINOPHEN 500 MG TAB (TYLENOL) PO SCH ×3 (14:30→21:27)
[2022-03-30] MEDS: DOCUSATE SODIUM 100 MG (COLACE) CAP PO SCH (21:26)
[2022-03-31] VITALS: BP 103/60
[2022-03-31 04:00] VITALS: BP 100/61
[2022-03-31] MEDS: IBUPROFEN 600 MG (MOTRIN) TAB PO SCH ×2 (05:20→11:50)
[2022-03-31] MEDS: ACETAMINOPHEN 500 MG TAB (TYLENOL) PO SCH ×2 (05:20→11:50)
[2022-03-31 05:40] LABS: BASOPHILS # (AUTO) 0.1 10^3/uL (0.0-0.1); BASOPHILS % (AUTO) 1 % (0-10); EOSINOPHILS # (AUTO) 0.4 10^3/uL (0.0-0.3); EOSINOPHILS % (AUTO) 4 % (0-10); HEMATOCRIT 30 % (35-52); HEMOGLOBIN 9.6 g/dL (11.5-16.0); LYMPHOCYTES # (AUTO) 2.7 10^3/uL (1.0-4.0); LYMPHOCYTES % (AUTO) 26 % (12-44); MEAN CORPUSCULAR HEMOGLOBIN 26 pg (25-34); MEAN CORPUSCULAR HGB CONC 32 g/dL (32-36); MEAN CORPUSCULAR VOLUME 80 fL (80-99); MEAN PLATELET VOLUME 11.3 fL (9.0-12.2); MONOCYTES # (AUTO) 0.9 10^3/uL (0.0-1.0); MONOCYTES % (AUTO) 9 % (0-12); NEUTROPHILS # (AUTO) 6.3 10^3/uL (1.8-7.8); NEUTROPHILS % (AUTO) 60 % (42-75); PLATELET COUNT 312 10^3/uL (130-400); WHITE BLOOD COUNT 10.4 10^3/uL (4.3-11.0)
--- NOTE | 2022-03-31 07:25 | Discharge Summary ---
Diagnosis/Chief Complaint Date of Admission Mar 30, 2022 at 06:05 Date of Discharge Mar 31, 2022 Admission Diagnosis Admission Diagnosis 1. IUP at 39 weeks gestation Discharge Diagnosis 1. IUP at 39 weeks gestation 2. Anemia, iron def Chief Complaint/HPI Chief Complaint/HPI 26 yo [id number] who initially presented to labor and delivery in the morning of March 30, 2022 for induction of labor. Patient's care was essentially unremarkable although she did have anemia which was corrected with iron replacement Her EDC is April 06, 2022. Her GBS status at 36 weeks was negative. Discharge Summary-OBS Procedures 1. Spontaneous vaginal delivery 2. Epidural per anesthesia Discharge Physical Examination Allergies: Coded Allergies: aspirin (Verified Allergy, Unknown, 03/30/22) Vitals & I&Os Intake and Output 03/31/22 00:00 Intake Total 500 ml Balance 500 ml Vital Sign - Last 12Hours Date Time Temp Pulse Resp B/P (MAP) Pulse Ox O2 Delivery O2 Flow Rate FiO2 03/31/22 04:00 36.0 58 18 100/61 (74) 98 Room Air Respiratory: Clear to Auscultation Cardiovascular: Regular Rate Abdominal: Soft (with uterus firm) Hospital Course Was the Problem List Reviewed?: Yes patient was admitted in the morning of March 30, 2022 for induction of labor. She underwent amniotomy with placement of scalp electrode. Strip remained reactive throughout the course of labor. She did require only 2 milliunits of Pitocin to achieve adequate contractions. Ultimately she went on to deliver a term viable male in the morning of March. received Apgars of 8 at 1 minute and 9 at 5 minutes. Following delivery she underwent routine care orders. She had no complications during the remainder of hospital stay. Her hemoglobin in the morning of March 31 was 9.6 compared to admission of 10.9. She was without any lightheadedness or dizziness. She tolerated regular diet and was ambulatory. She was noted to be breast-feeding. She will be discharged to home early afternoon and follow-up with myself in 6 weeks at [facility]. Labs Laboratory Tests 03/31/22 05:30: White Blood Count 10.4, Red Blood Count 3.76L, Hemoglobin 9.6L, Hematocrit 30L, Mean Corpuscular Volume 80, Mean Corpuscular Hemoglobin 26, Mean Corpuscular Hemoglobin Concent 32, Red Cell Distribution Width 15.9H, Platelet Count 312, Mean Platelet Volume 11.3, Immature Granulocyte % (Auto) 1, Neutrophils (%) (Auto) 60, Lymphocytes (%) (Auto) 26, Monocytes (%) (Auto) 9, Eosinophils (%) (Auto) 4, Basophils (%) (Auto) 1, Neutrophils # (Auto) 6.3, Lymphocytes # (Auto) 2.7, Monocytes # (Auto) 0.9, Eosinophils # (Auto) 0.4H, Basophils # (Auto) 0.1, Immature Granulocyte # (Auto) 0.1 Discharge Instructions to patient/family Please see electronic discharge instructions given to patient. Discharge Medications Reviewed and agree with Discharge Medication list on patient's Discharge Instruction sheet DAMASO HOPPER MD Mar 31, 2022 07:25
--- NOTE | 2022-03-31 07:27 | Discharge Inst-Women's Service ---
Discharge Inst-Women's Serv Depart Medication/Instructions New, Converted or Re-Newed RX: Other Instructions May take ibuprofen 200 mg [id number] tablets, 2 or 3 every 6 hours if needed for cramping or pain. Also continuation your iron replacement at least once daily for 6 weeks. Problems Reviewed?: Yes Consults/Follow Up Additional Follow Up: Yes (Dr Hopper in [address] [facility]) Activity Activity: Activity as Tolerated Driving Instructions: No Driving for 1 Week Nothing Inside Vagina: No [place] (for 6 weeks) Diet Discharge Diet: Regular Diet Return to The Hospital For: as below Symptoms to Report to : Bleeding Excessive, Fever Over 101 Degrees F, Vaginal Discharge Foul For Any Problems or Questions: Contact Your Physician DAMASO HOPPER MD Mar 31, 2022 07:27
[2022-03-31 08:14] VITALS: BP 109/71
[2022-03-31] MEDS: DOCUSATE SODIUM 100 MG (COLACE) CAP PO SCH (08:14)
--- NOTE | 2022-03-31 09:43 | Anesthesia-Regional Post-Op ---
Regional Patient Condition Mental Status: Alert, Oriented x3 Circulation: Same as Pre-Op Headache: Absent Sensation: Full Recovery Motor Block: Absent Post Op Complications Complications None Follow Up Care/Instructions Patient Instructions None needed. Anesthesia/Patient Condition Patient is doing well, no complaints, stable vital signs, no apparent adverse anesthesia problems. No complications reported per nursing. D/C home [place] [facility] Criteria: Yes ANGEL STOCKTON CRNA Mar 31, 2022 09:43
[2022-03-31 12:15] VITALS: BP 109/71
== END 2022-03-31 12:15 | disposition home or self-care (01) | DRG 807 ==
LOC: LDRP 06:05
PROVIDERS: ADMIT Family Medicine; ATTEND Family Medicine
PROC: 10E0XZZ Delivery of Products of Conception, External Approach (ICD-10-PCS; principal; 2022-03-30)
PROC: 10907ZC Drainage of Amniotic Fluid, Therapeutic from Products of Conception, Via Natural or Artificial Opening (ICD-10-PCS; 2022-03-30)
PROC: 10H073Z Insertion of Monitoring Electrode into Products of Conception, Via Natural or Artificial Opening (ICD-10-PCS; 2022-03-30)
DX: O99.03 Anemia complicating the puerperium (principal); Z37.0 Single live birth; D50.9 Iron deficiency anemia, unspecified; Z3A.39 39 weeks gestation of pregnancy; Z28.310 Unvaccinated for COVID-19
CPT/HCPCS: 36415; 81000; 85025; 86780; 86850; 86900; 86901; 87077; 87088; 87186